=== PATIENT | female | born 1985 | race American Indian/Alaskan Native ===

== ENCOUNTER 2019-03-01 20:34 | Emergency (ER) | payer SELFPAY ==
[2019-03-01 21:08] LABS: Hematocrit 34.6 % (30.3-42.9); Hemoglobin 11.1 gm/dl (10.1-14.3); Mean Corpuscular HGB Conc 32 % (30-34); Mean Corpuscular Volume 88 fl (79-97); Platelet Count 448 K/mm3 (140-440); Red Blood Count 3.92 M/mm3 (3.65-5.03)
[2019-03-01 21:13] LABS: Bilirubin,Urine Negative (Negative); Color,Urine Yellow (Yellow)
[2019-03-01 21:14] LABS: Blood,Urine Small (Negative); Mucus,Urine Few /HPF; Protein,Urine <15 mg/dL mg/dL (Negative); Urobilinogen,Urine < 2.0 mg/dL (<2.0)
[2019-03-01 21:23] LABS: INR 0.83 (0.87-1.13)
[2019-03-01] MEDS ORDERED: methylPREDNISolone Sod Succinate 125 MG/2 ML INJ IV ONE (21:29)
[2019-03-01] MEDS ORDERED: diphenhydrAMINE 50 MG/ML VIAL IV ONE (21:29)
[2019-03-01] MEDS ORDERED: LIDOCAINE (4%) 40 MG/ML TOPICAL SOLN 50 ML BOTTLE TP ONE (21:29)
[2019-03-01] MEDS ORDERED: METOCLOPRAMIDE 10 MG/2 ML INJ IV ONE (21:29)
[2019-03-01] MEDS ORDERED: MAGNESIUM SULFATE 2 GM/50 ML BAG IV ONE (21:29)
--- NOTE | 2019-03-01 21:30 | Emergency Department Report ---
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 She reports that she is not , and further reports that she has not delivered a given within the past 6 weeks. She also denies DVT and pulmonary embolism risk factors. The patient believes that she may have a history of hypertension, and recently started and antihypertensive medication within the past week or so. The patient further reports that she was seen at [facility] a few days ago for headache. She reports that she went twice. The headache is frontal, bitemporal. The headache is present for one week. The headache is not described as sudden or thunderclap in nature. The headache is not maximal intensity at onset. The headache has been constant for one week. She reports it does not have exacerbating or relieving factors that she is aware. She describes the headache as "somebody pulling on my hair." There is no neck pain or stiffness, no recent MBC, no recent chiropractic manipulation, no sore throat, no fever, no extremity weakness and/or numbness. She denies additional pain. Apparently, she was at work today, and had an episode of convulsion, and one of her coworkers believes that she may have had a seizure. It is uncertain if there was any convulsive activity, but apparently, she may have been foaming at the mouth. She denies recreational drug use. Patient reports not having had her vision checked recently. She does not work glasses or contact lenses. She reports that she gets at least 5 or 6 hours of screen time per day, in front of various lecher devices, including computer, and cell phone. -: Gradual Location: head Severity scale (0 -10): 0 Consistency: other Improves with: other Worsens with: other - Related Data Previous Rx's Medication Instructions Recorded Last Taken Type Ciprofloxacin HCl [Cipro] 500 mg PO Q12H #14 tab 02/06/15 Unknown Rx amLODIPine [Norvasc] 10 mg PO DAILY #30 tab 04/04/14 Unknown Rx Acetaminophen [Non-Aspirin Extra 500 mg PO Q6HR PRN #30 tablet 03/01/19 Unknown Rx Strength] Ibuprofen [Motrin] 600 mg PO Q8H PRN #30 tablet 03/01/19 Unknown Rx Metoclopramide [Reglan] 10 mg PO QID PRN #30 tablet 03/01/19 Unknown Rx Allergies Allergy/AdvReac Type Severity Reaction Status Date / Time No Known Allergies Allergy Verified 04/04/14 11:33 ED Review of Systems ROS: Stated complaint: SEIZURE AND HEADACHES Other details as noted in HPI Constitutional: denies: fever Eyes: denies: eye discharge, vision change ENT: denies: dental pain, congestion Cardiovascular: denies: chest pain, palpitations Gastrointestinal: denies: abdominal pain, nausea, vomiting Genitourinary: denies: dysuria Musculoskeletal: denies: myalgia Neurological: headache. denies: weakness, numbness, paresthesias, confusion Hematological/Lymphatic: denies: easy bleeding ED Past Medical Hx - Past Medical History Previous Medical History?: Yes Hx Hypertension: Yes - Surgical History Past Surgical History?: Yes Additional Surgical History: ECTOPIC - Social History Smoking Status: Never Smoker Substance Use Type: Alcohol - Medications Home Medications: Home Medications Medication Instructions Recorded Confirmed Last Taken Type Ciprofloxacin HCl [Cipro] 500 mg PO Q12H #14 tab 04/04/14 Unknown Rx amLODIPine [Norvasc] 10 mg PO DAILY #30 tab 04/04/14 Unknown Rx Acetaminophen [Non-Aspirin Extra 500 mg PO Q6HR PRN #30 tablet 03/01/19 Unknown Rx Strength] Ibuprofen [Motrin] 600 mg PO Q8H PRN #30 tablet 03/01/19 Unknown Rx Metoclopramide [Reglan] 10 mg PO QID PRN #30 tablet 03/01/19 Unknown Rx ED Physical Exam - General Limitations: No Limitations General appearance: alert, in no apparent distress - Head Head exam: Present: atraumatic, normocephalic - Eye Eye exam: Present: normal appearance, PERRL, EOMI, other (visual acuity intact to finger counting, color perception, reading at a close distance). Absent: nystagmus - ENT ENT exam: Present: normal exam, normal orophraynx, mucous membranes moist, TM's normal bilaterally, normal external ear exam - Neck Neck exam: Present: normal inspection, full ROM. Absent: tenderness, meningismus - Respiratory Respiratory exam: Present: normal lung sounds bilaterally. Absent: respiratory distress - Cardiovascular Cardiovascular Exam: Present: regular rate, normal rhythm, normal heart sounds. Absent: bradycardia, tachycardia, irregular rhythm, systolic murmur, diastolic murmur, rubs, gallop - GI/Abdominal GI/Abdominal exam: Present: soft, normal bowel sounds. Absent: distended, tenderness, guarding, rebound, rigid, pulsatile mass - Extremities Exam Extremities exam: Present: normal inspection, full ROM, other (2+ pulses noted in the bilateral upper and lower extremities. The pelvis is stable. There is no long bony tenderness. The muscular compartments are soft. There is no redness, pus, streaking or erythema.). Absent: pedal edema, joint swelling, calf tenderness - Back Exam Back exam: Present: normal inspection, full ROM. Absent: tenderness, CVA tenderness (R), CVA tenderness (L), paraspinal tenderness, vertebral tenderness - Neurological Exam Neurological exam: Present: alert (there is no pass pointing. There is normal [id number]. There is a normal tandem gait. There is no pronator drift. There is negative Romberg examination), oriented X3, normal gait, other (there is no facial droop. The tongue is midline. Extraocular movements are intact bilaterally. There is 5 out of 5 strength in bilateral upper and lower extremities. Sensation is intact to light touch bilateral upper and lower extremities. There is no past-pointing. There is no pronator drift. There is normal [id number]. There is a normal gait.). Absent: motor sensory deficit - Psychiatric Psychiatric exam: Present: normal affect, normal mood - Skin Skin exam: Present: warm, dry, intact, normal color. Absent: rash ED Course Vital Signs 03/01/19 03/01/19 03/01/19 20:46 21:44 21:46 Temperature 97.9 F Pulse Rate 80 70 Respiratory 18 10 L Rate Blood Pressure Blood Pressure 179/116 [Right] O2 Sat by Pulse 98 97 98 Oximetry 03/01/19 03/01/19 03/01/19 22:02 22:16 22:30 Temperature Pulse Rate 85 67 72 Respiratory 13 14 Rate Blood Pressure 183/109 Blood Pressure [Right] O2 Sat by Pulse 97 99 Oximetry 03/01/19 03/01/19 03/01/19 22:45 23:10 23:15 Temperature Pulse Rate 63 72 Respiratory 20 20 Rate Blood Pressure 173/101 173/101 166/104 Blood Pressure [Right] O2 Sat by Pulse 98 93 98 Oximetry 03/01/19 03/01/19 03/02/19 23:30 23:45 00:00 Temperature Pulse Rate 63 63 64 Respiratory 17 24 21 Rate Blood Pressure 166/104 156/108 156/108 Blood Pressure [Right] O2 Sat by Pulse 99 99 99 Oximetry - Reevaluation(s) Reevaluation #1: 03/01/19 22:29 Differential diagnosis, including but not limited to: Migraine headache, tension headache, cluster headache, seizure, pseudoseizure, intracranial lesion Assessment and plan: 33-year-old female, with headache for one week, possible convulsive event today. She does not have any risk factors for preeclampsia. Does not have any risk factors for venous sinus thrombosis. Headache by history is not consistent with subarachnoid hemorrhage, or spontaneous hemorrhage. The patient is afebrile, with reassuring vital signs, clinically sober, walks with a steady gait. Her physical examination is unremarkable with the exception of elevated blood pressure. A noncontrast CT scan of the brain is ordered. Screening laboratory studies are reviewed and appreciated, and/or unremarkable. Hypokalemia will be addressed. Patient placed on monitoring tech. No further convulsive events noted, no loss of consciousness noted. Reevaluation #2: 03/01/19 23:44 The patient is reassessed. She feels improved. Her repeat neurologic examination is unremarkable and unchanged from prior. Noncontrast CT scan of the brain is negative for acute disease. She is taking lisinopril, 10 mg daily. Blood pressure is improved. Reevaluation #3: 03/02/19 00:42 Blood pressure is improved. Observed for over 4 hours without clinical decompensation. No additional convulsive events noted. We will discharge the patient. Return precautions reviewed. Patient and family amenable to this plan of care. ED Medical Decision Making - Lab Data Result diagrams: 03/01/19 20:54 03/01/19 20:54 Vital Signs 03/01/19 20:46 Temperature 97.9 F Pulse Rate 80 Respiratory 18 Rate Blood Pressure 179/116 [Right] O2 Sat by Pulse 98 Oximetry Lab Results 03/01/19 03/01/19 03/01/19 Range/Units 20:54 20:54 20:54 WBC 13.2 H (4.5-11.0) K/mm3 RBC 3.92 (3.65-5.03) M/mm3 Hgb 11.1 (10.1-14.3) gm/dl Hct 34.6 (30.3-42.9) % MCV 88 (79-97) fl MCH 28 (28-32) pg MCHC 32 (30-34) % RDW 14.0 (13.2-15.2) % Plt Count 448 H (140-440) K/mm3 PT (12.2-14.9) Sec. INR (0.87-1.13) Sodium (137-145) mmol/L Potassium (3.6-5.0) mmol/L Chloride (98-107) mmol/L Carbon Dioxide (22-30) mmol/L Anion Gap mmol/L BUN (7-17) mg/dL Creatinine (0.7-1.2) mg/dL Estimated GFR ml/min BUN/Creatinine Ratio % Glucose (65-100) mg/dL Calcium (8.4-10.2) mg/dL Magnesium (1.7-2.3) mg/dL Total Bilirubin (0.1-1.2) mg/dL AST (5-40) units/L ALT (7-56) units/L Alkaline Phosphatase (35-129) units/L Total Creatine Kinase (30-135) units/L Total Protein (6.3-8.2) g/dL Albumin (3.9-5) g/dL Albumin/Globulin Ratio % TSH (0.270-4.200) mlU/mL HCG, Quant (0-4) mIU/mL Urine Color Yellow (Yellow) Urine Turbidity Clear (Clear) Urine pH 5.0 (5.0-7.0) Ur Specific Dalton 1.020 (1.003-1.030) Urine Protein <15 mg/dl (Negative) mg/dL Urine Glucose (UA) Negative (Negative) mg/dL Urine Ketones Negative (Negative) mg/dL Urine Blood Small A (Negative) Urine Nitrite Negative (Negative) Urine Bilirubin Negative (Negative) Urine Urobilinogen < 2.0 (<2.0) mg/dL Ur Leukocyte Esterase Negative (Negative) Urine WBC (Auto) 1.0 (0.0-6.0) /HPF Urine RBC (Auto) 2.0 (0.0-6.0) /HPF U Epithel Cells (Auto) 1.0 (0-13.0) /HPF Urine Mucus Few /HPF Salicylates (2.8-20.0) mg/dL Urine Opiates Screen Presumptive negative Urine Methadone Screen Presumptive negative Acetaminophen (10.0-30.0) ug/mL Ur Barbiturates Screen Presumptive negative Ur Phencyclidine Scrn Presumptive negative Ur Amphetamines Screen Presumptive negative U Benzodiazepines Scrn Presumptive negative Urine Cocaine Screen Presumptive negative U Marijuana (THC) Screen Presumptive negative Drugs of Abuse Note Disclamer Plasma/Serum Alcohol (0-0.07) % 03/01/19 03/01/19 03/01/19 Range/Units 20:54 20:54 20:54 WBC (4.5-11.0) K/mm3 RBC (3.65-5.03) M/mm3 Hgb (10.1-14.3) gm/dl Hct (30.3-42.9) % MCV (79-97) fl MCH (28-32) pg MCHC (30-34) % RDW (13.2-15.2) % Plt Count (140-440) K/mm3 PT 11.5 L (12.2-14.9) Sec. INR 0.83 L (0.87-1.13) Sodium 139 (137-145) mmol/L Potassium 3.0 L (3.6-5.0) mmol/L Chloride 100.8 (98-107) mmol/L Carbon Dioxide 24 (22-30) mmol/L Anion Gap 17 mmol/L BUN 10 (7-17) mg/dL Creatinine 0.8 (0.7-1.2) mg/dL Estimated GFR > 60 ml/min BUN/Creatinine Ratio 13 % Glucose 108 H (65-100) mg/dL Calcium 8.9 (8.4-10.2) mg/dL Magnesium 1.90 (1.7-2.3) mg/dL Total Bilirubin 0.20 (0.1-1.2) mg/dL AST 11 (5-40) units/L ALT 8 (7-56) units/L Alkaline Phosphatase 58 (35-129) units/L Total Creatine Kinase 128 (30-135) units/L Total Protein 7.3 (6.3-8.2) g/dL Albumin 4.0 (3.9-5) g/dL Albumin/Globulin Ratio 1.2 % TSH 0.821 (0.270-4.200) mlU/mL HCG, Quant (0-4) mIU/mL Urine Color (Yellow) Urine Turbidity (Clear) Urine pH (5.0-7.0) Ur Specific Dalton (1.003-1.030) Urine Protein (Negative) mg/dL Urine Glucose (UA) (Negative) mg/dL Urine Ketones (Negative) mg/dL Urine Blood (Negative) Urine Nitrite (Negative) Urine Bilirubin (Negative) Urine Urobilinogen (<2.0) mg/dL Ur Leukocyte Esterase (Negative) Urine WBC (Auto) (0.0-6.0) /HPF Urine RBC (Auto) (0.0-6.0) /HPF U Epithel Cells (Auto) (0-13.0) /HPF Urine Mucus /HPF Salicylates (2.8-20.0) mg/dL Urine Opiates Screen Urine Methadone Screen Acetaminophen (10.0-30.0) ug/mL Ur Barbiturates Screen Ur Phencyclidine Scrn Ur Amphetamines Screen U Benzodiazepines Scrn Urine Cocaine Screen U Marijuana (THC) Screen Drugs of Abuse Note Plasma/Serum Alcohol (0-0.07) % 03/01/19 03/01/19 03/01/19 Range/Units 20:54 20:54 20:54 WBC (4.5-11.0) K/mm3 RBC (3.65-5.03) M/mm3 Hgb (10.1-14.3) gm/dl Hct (30.3-42.9) % MCV (79-97) fl MCH (28-32) pg MCHC (30-34) % RDW (13.2-15.2) % Plt Count (140-440) K/mm3 PT (12.2-14.9) Sec. INR (0.87-1.13) Sodium (137-145) mmol/L Potassium (3.6-5.0) mmol/L Chloride (98-107) mmol/L Carbon Dioxide (22-30) mmol/L Anion Gap mmol/L BUN (7-17) mg/dL Creatinine (0.7-1.2) mg/dL Estimated GFR ml/min BUN/Creatinine Ratio % Glucose (65-100) mg/dL Calcium (8.4-10.2) mg/dL Magnesium (1.7-2.3) mg/dL Total Bilirubin (0.1-1.2) mg/dL AST (5-40) units/L ALT (7-56) units/L Alkaline Phosphatase (35-129) units/L Total Creatine Kinase (30-135) units/L Total Protein (6.3-8.2) g/dL Albumin (3.9-5) g/dL Albumin/Globulin Ratio % TSH (0.270-4.200) mlU/mL HCG, Quant 0.5 (0-4) mIU/mL Urine Color (Yellow) Urine Turbidity (Clear) Urine pH (5.0-7.0) Ur Specific Dalton (1.003-1.030) Urine Protein (Negative) mg/dL Urine Glucose (UA) (Negative) mg/dL Urine Ketones (Negative) mg/dL Urine Blood (Negative) Urine Nitrite (Negative) Urine Bilirubin (Negative) Urine Urobilinogen (<2.0) mg/dL Ur Leukocyte Esterase (Negative) Urine WBC (Auto) (0.0-6.0) /HPF Urine RBC (Auto) (0.0-6.0) /HPF U Epithel Cells (Auto) (0-13.0) /HPF Urine Mucus /HPF Salicylates < 0.3 L (2.8-20.0) mg/dL Urine Opiates Screen Urine Methadone Screen Acetaminophen 10.8 (10.0-30.0) ug/mL Ur Barbiturates Screen Ur Phencyclidine Scrn Ur Amphetamines Screen U Benzodiazepines Scrn Urine Cocaine Screen U Marijuana (THC) Screen Drugs of Abuse Note Plasma/Serum Alcohol (0-0.07) % 03/01/19 Range/Units 20:54 WBC (4.5-11.0) K/mm3 RBC (3.65-5.03) M/mm3 Hgb (10.1-14.3) gm/dl Hct (30.3-42.9) % MCV (79-97) fl MCH (28-32) pg MCHC (30-34) % RDW (13.2-15.2) % Plt Count (140-440) K/mm3 PT (12.2-14.9) Sec. INR (0.87-1.13) Sodium (137-145) mmol/L Potassium (3.6-5.0) mmol/L Chloride (98-107) mmol/L Carbon Dioxide (22-30) mmol/L Anion Gap mmol/L BUN (7-17) mg/dL Creatinine (0.7-1.2) mg/dL Estimated GFR ml/min BUN/Creatinine Ratio % Glucose (65-100) mg/dL Calcium (8.4-10.2) mg/dL Magnesium (1.7-2.3) mg/dL Total Bilirubin (0.1-1.2) mg/dL AST (5-40) units/L ALT (7-56) units/L Alkaline Phosphatase (35-129) units/L Total Creatine Kinase (30-135) units/L Total Protein (6.3-8.2) g/dL Albumin (3.9-5) g/dL Albumin/Globulin Ratio % TSH (0.270-4.200) mlU/mL HCG, Quant (0-4) mIU/mL Urine Color (Yellow) Urine Turbidity (Clear) Urine pH (5.0-7.0) Ur Specific Dalton (1.003-1.030) Urine Protein (Negative) mg/dL Urine Glucose (UA) (Negative) mg/dL Urine Ketones (Negative) mg/dL Urine Blood (Negative) Urine Nitrite (Negative) Urine Bilirubin (Negative) Urine Urobilinogen (<2.0) mg/dL Ur Leukocyte Esterase (Negative) Urine WBC (Auto) (0.0-6.0) /HPF Urine RBC (Auto) (0.0-6.0) /HPF U Epithel Cells (Auto) (0-13.0) /HPF Urine Mucus /HPF Salicylates (2.8-20.0) mg/dL Urine Opiates Screen Urine Methadone Screen Acetaminophen (10.0-30.0) ug/mL Ur Barbiturates Screen Ur Phencyclidine Scrn Ur Amphetamines Screen U Benzodiazepines Scrn Urine Cocaine Screen U Marijuana (THC) Screen Drugs of Abuse Note Plasma/Serum Alcohol < 0.01 (0-0.07) % - EKG Data -: EKG Interpreted by Me - EKG Data 03/01/19 22:29 There is no prior EKG available for comparison. The EKG shows a sinus rhythm, normal axis, QTC within normal limits, motion artifact, no endorsement of chest pain, Q waves in the inferior leads, the EKG is abnormal, there is no prior for comparison, the EKG is not consistent with ST elevation myocardial infarction. - Radiology Data Radiology results: pending, report reviewed Critical care attestation.: If time is entered above; I have spent that time in minutes in the direct care of this critically ill patient, excluding procedure time. ED Disposition Clinical Impression: History of headache, History of convulsions Disposition: TO HOME OR SELFCARE Is pt being admited?: No Does the pt Need Aspirin: No Condition: Stable Additional Instructions: Do not drive or operate motor vehicles for the next 6 months, or until cleared to do so by a primary care doctor or neurology doctor. Recommend patient follow-up with the primary care doctor or neurologist within the next 5-7 days. Take the headache medicine as needed and/or directed. Avoid consumption of alcohol. Please minimize computer screen time to work-related tasks and only essential tasks. Recommend follow-up with an outpatient auction block clerk or receptionist doctor's office within the next 2 weeks, for formal vision testing, to assess for need for corrective lenses. Return to the emergency room right away with projectile vomiting, change in mental status, confusion, inability to tolerate liquid feeds, new, worsening or different symptoms not present on the initial emergency room evaluation. Prescriptions: Ibuprofen [Motrin] 600 mg PO Q8H PRN #30 tablet PRN Reason: Pain Acetaminophen [Non-Aspirin Extra Strength] 500 mg PO Q6HR PRN #30 tablet PRN Reason: Pain , Severe (7-10) Metoclopramide [Reglan] 10 mg PO QID PRN #30 tablet PRN Reason: Headache Referrals: YAEL LARIOS MD [Referring] - 3-5 Days JEANETTE JACKSON MD [Staff Physician] - 3-5 Days SASHA ZAVALA MD [Staff Physician] - 3-5 Days [facility] [Provider Group] - 3-5 Days
[2019-03-01 21:38] LABS: Alanine Aminotransferase 8 units/L (7-56); BUN/Creatinine Ratio 13; Blood Urea Nitrogen 10 mg/dL (7-17); Calcium 8.9 mg/dL (8.4-10.2)
[2019-03-01 21:41] LABS: Amphetamine Screen,Urine PRESUMPTIVE NEGATIVE; Benzodiazepines Screen,Urine PRESUMPTIVE NEGATIVE; Cannabinoid Screen,Urine PRESUMPTIVE NEGATIVE; Cocaine Screen,Urine PRESUMPTIVE NEGATIVE; Methadone Screen,Urine PRESUMPTIVE NEGATIVE; Opiate Screen,Urine PRESUMPTIVE NEGATIVE
[2019-03-01] MEDS ORDERED: SODIUM CHLORIDE 0.9% 500 ML 500 ML IV ONE (22:20)
[2019-03-01] MEDS ORDERED: POTASSIUM CHLORIDE ER 20 MEQ TAB PO ONE (22:20)
[2019-03-01] MEDS: POTASSIUM CHLORIDE 10 MEQ 10 MEQ/100 ML BAG IV SCH (23:16)
--- NOTE | 2019-03-01 23:34 | Cat Scan Report ---
CT HEAD WITHOUT CONTRAST INDICATION / CLINICAL INFORMATION: convulsion, headache`. TECHNIQUE: All CT scans at this location are performed using CT dose reduction for ALARA by means of automated e xposure control. COMPARISON: None available. FINDINGS: HEMORRHAGE: None. EXTRA-AXIAL SPACES: Normal in size and morphology for the patient's age. VENTRICULAR SYSTEM: Normal in size and morphology for the patient's age. CEREBRAL PARENCHYMA: No significant abnormality. No acute territorial infarct. MIDLINE SHIFT OR HERNIATION: None. CEREBELLUM / BRAINSTEM: No significant abnormality. ORBITS: Normal as visualized. SOFT TISSUES of HEAD: No significant abnormality. CALVARIUM: No significant abnormality. PARANASAL SINUSES / MASTOID AIR CELLS: Normal as visualized. ADDITIONAL FINDINGS: None. IMPRESSION: 1. No acute intracranial abnormality. Signer Name: Dwayne Flower MD Signed: 03/01/2019 11:30 PM Workstation Name: [id number]
[2019-03-02 00:08] VITALS: BP 156/108
[2019-03-02] MEDS: POTASSIUM CHLORIDE 10 MEQ 10 MEQ/100 ML BAG IV SCH (00:27)
[2019-03-02 05:21] LABS: Hemolysis Index 1
== END 2019-03-02 02:19 | disposition home or self-care (01) ==
LOC: ED 20:34
DX: R51 Headache (principal); R56.9 Unspecified convulsions; I10 Essential (primary) hypertension; F10.10 Alcohol abuse, uncomplicated; Z98.890 Other specified postprocedural states; Z79.899 Other long term (current) drug therapy
CPT/HCPCS: 36415; 70450; 80053; 80307; 81001; 82550; 83735; 84443; 84702; 85027; 85610; 93005; 93010; 96365; 96375; 99285; J1200; J2765; J2930; J3475; J3480; J7040; 80320; G0480

== ENCOUNTER 2019-03-06 18:24 | Emergency (ER) | payer SELFPAY ==
--- NOTE | 2019-03-06 21:56 | Event Note ---
ED Screening Note Date of service: 03/06/19 ED Screening Note: This initial assessment/diagnostic orders/clinical plan/treatment(s) is/are subject to change based on patients health status, clinical progression and re- assessment by fellow clinical providers in the ED. Further treatment and workup at subsequent clinical providers discretion. Patient/guardian urged not to elope from the ED as their condition may be serious if not clinically assessed and managed. Initial orders include:
--- NOTE | 2019-03-06 22:02 | Event Note ---
ED Screening Note Date of service: 03/06/19 Time: 21:58 ED Screening Note: Patient reports a epileptic event today while at work. Patient reports first seizure 03/01/18 and seen in this ER. Referral to neurology and PCP with no follow up. PMH of HTN Patient reports similar symptoms Monday and Monday. She was seen at [place] and sent home with pain medication. This initial assessment/diagnostic orders/clinical plan/treatment(s) is/are subject to change based on patients health status, clinical progression and re- assessment by fellow clinical providers in the ED. Further treatment and workup at subsequent clinical providers discretion. Patient/guardian urged not to elope from the ED as their condition may be serious if not clinically assessed and managed. Initial orders include: Labs
[2019-03-06 22:56] LABS: Basophils # (Auto) 0.2 K/mm3 (0.0-0.1); Basophils % (Auto) 1.1 % (0.0-1.8); Eosinophils # (Auto) 0.2 K/mm3 (0.0-0.4); Eosinophils % (Auto) 1.2 % (0.0-4.3); Hematocrit 35.4 % (30.3-42.9); Hemoglobin 11.7 gm/dl (10.1-14.3); Lymphocytes # (Auto) 3.3 K/mm3 (1.2-5.4); Lymphocytes % (Auto) 22.7 % (13.4-35.0); Mean Corpuscular HGB Conc 33 % (30-34); Mean Corpuscular Volume 87 fl (79-97); Monocytes # (Auto) 0.6 K/mm3 (0.0-0.8); Monocytes % (Auto) 4.2 % (0.0-7.3); Platelet Count 543 K/mm3 (140-440); Red Blood Count 4.07 M/mm3 (3.65-5.03); Red Cell Distribution Width 14.4 % (13.2-15.2)
[2019-03-06 23:05] LABS: INR 0.9 (0.87-1.13)
[2019-03-06 23:20] LABS: Alanine Aminotransferase 11 units/L (7-56); Albumin 4.2 g/dL (3.9-5); BUN/Creatinine Ratio 9; Blood Urea Nitrogen 6 mg/dL (7-17); Calcium 9.3 mg/dL (8.4-10.2); Hemolysis Index 3
[2019-03-07] MEDS ORDERED: cloNIDine 0.1 MG TAB PO ONE (02:27)
[2019-03-07] MEDS ORDERED: cloNIDine 0.2 MG TAB ONE (02:28)
--- NOTE | 2019-03-07 02:30 | Emergency Department Report ---
ED Headache HPI - General Chief Complaint: Headache Stated Complaint: WEAK/HEADACHE/BLUR VISION Time Seen by Provider: 03/06/19 21:55 - History of Present Illness Initial Comments: Patient is a 34-year-old female, nontoxic with no significant past medical history except for hypertension, noncompliant with her medication. Patient presented to the ER complaining of headache and blurry vision for 2 weeks, on and off. Patient stated that she was seen here 5 days ago had a negative CT scan of the brain. Patient currently denying any fever, chills, neck pain or stiffness, weakness numbness or tingling sensation. Patient found to have a blood pressure of 183/101. Allergies/Adverse Reactions: Allergies No Known Allergies Allergy (Verified 03/06/19 21:55) Home Medications: Ambulatory Orders Ciprofloxacin HCl [Cipro] 500 mg PO Q12H #14 tab 04/04/14 amLODIPine [Norvasc] 10 mg PO DAILY #30 tab 04/04/14 Acetaminophen [Non-Aspirin Extra Strength] 500 mg PO Q6HR PRN #30 tablet 03/01/19 Ibuprofen [Motrin] 600 mg PO Q8H PRN #30 tablet 03/01/19 Metoclopramide [Reglan] 10 mg PO QID PRN #30 tablet 03/01/19 ED Review of Systems ROS: Stated complaint: WEAK/HEADACHE/BLUR VISION Other details as noted in HPI Comment: All other systems reviewed and negative Constitutional: denies: chills, fever Respiratory: denies: cough, shortness of breath, SOB with exertion Cardiovascular: denies: chest pain, palpitations Gastrointestinal: denies: abdominal pain, nausea Musculoskeletal: denies: back pain Neurological: headache. denies: weakness, numbness, paresthesias, confusion, abnormal gait ED Past Medical Hx - Past Medical History Previous Medical History?: Yes Hx Hypertension: Yes - Surgical History Past Surgical History?: Yes Additional Surgical History: ECTOPIC - Social History Smoking Status: Never Smoker Substance Use Type: Alcohol - Medications Home Medications: Home Medications Medication Instructions Recorded Confirmed Last Taken Type Ciprofloxacin HCl [Cipro] 500 mg PO Q12H #14 tab 04/04/14 Unknown Rx amLODIPine [Norvasc] 10 mg PO DAILY #30 tab 04/04/14 Unknown Rx Acetaminophen [Non-Aspirin Extra 500 mg PO Q6HR PRN #30 tablet 03/01/19 Unknown Rx Strength] Ibuprofen [Motrin] 600 mg PO Q8H PRN #30 tablet 03/01/19 Unknown Rx Metoclopramide [Reglan] 10 mg PO QID PRN #30 tablet 03/01/19 Unknown Rx ED Physical Exam - General Limitations: No Limitations General appearance: alert, in no apparent distress - Head Head exam: Present: atraumatic, normocephalic, normal inspection - Eye Eye exam: Present: normal appearance - ENT ENT exam: Present: normal exam, normal orophraynx, mucous membranes moist - Neck Neck exam: Present: normal inspection, full ROM. Absent: tenderness, meningism us, lymphadenopathy, thyromegaly - Respiratory Respiratory exam: Present: normal lung sounds bilaterally - Cardiovascular Cardiovascular Exam: Present: regular rate, normal rhythm, normal heart sounds - GI/Abdominal GI/Abdominal exam: Present: soft, normal bowel sounds. Absent: distended, tenderness, guarding, rebound, rigid, organomegaly, mass, bruit, pulsatile mass, hernia - Extremities Exam Extremities exam: Present: normal inspection, full ROM, normal capillary refill. Absent: tenderness, pedal edema, calf tenderness - Back Exam Back exam: Present: normal inspection, full ROM. Absent: CVA tenderness (R), CVA tenderness (L), muscle spasm, paraspinal tenderness, vertebral tenderness - Neurological Exam Neurological exam: Present: alert, oriented X3, CN II-XII intact, normal gait, reflexes normal - Psychiatric Psychiatric exam: Present: normal mood - Skin Skin exam: Present: warm, intact, normal color ED Course Vital Signs 03/06/19 03/07/19 03/07/19 19:23 02:50 04:41 Temperature 98.3 F 98.3 F Pulse Rate 83 83 83 Respiratory 20 20 Rate Blood Pressure 183/101 205/103 Blood Pressure 155/97 [Left] O2 Sat by Pulse 99 99 Oximetry ED Medical Decision Making - Lab Data Result diagrams: 03/06/19 22:18 03/06/19 22:18 - Radiology Data Radiology results: report reviewed - Medical Decision Making Patient is a 34-year-old female, nontoxic with no significant past medical history except for hypertension, noncompliant with her medication. Patient presented to the ER complaining of headache and blurry vision for 2 weeks, on and off. Patient stated that she was seen here 5 days ago had a negative CT scan of the brain. Patient currently denying any fever, chills, neck pain or stiffness, weakness numbness or tingling sensation. Patient found to have a blood pressure of 183/101 Patient received clonidine 0.2 mg with significant improvement in her blood pressure. Patient stated that her symptoms completely resolved now. Patient given prescription for Norvasc 5 mg and hydrochlorothiazide 25 mg and advised to follow up with her primary care physician in the next 2-3 days and to return to the ER if symptoms are not improved. Critical care attestation.: If time is entered above; I have spent that time in minutes in the direct care of this critically ill patient, excluding procedure time. ED Disposition Clinical Impression: Malignant hypertension, Headache Disposition: DC- TO HOME OR SELFCARE Is pt being admited?: No Condition: Stable Instructions: Hypertension (ED), Acute Headache (ED) Referrals: PRIMARY CARE, [Primary Care Provider] - 3-5 Days
[2019-03-07 04:42] VITALS: BP 155/97
== END 2019-03-07 05:16 | disposition home or self-care (01) ==
LOC: ED 18:24
DX: I10 Essential (primary) hypertension (principal); R51 Headache
CPT/HCPCS: 36415; 80053; 85025; 85610; 85730; 99283

== ENCOUNTER 2019-03-11 10:57 | Emergency (ER) | payer OTHER ==
--- NOTE | 2019-03-11 12:54 | Emergency Department Report ---
Blank Doc - Documentation Documentation: 34-year-old female that presents with URI symptoms. This initial assessment/diagnostic orders/clinical plan/treatment(s) is/are subject to change based on patient's health status, clinical progression and re- assessment by fellow clinical providers in the ED. Further treatment and workup at subsequent clinical providers discretion. Patient/guardians urged not to elope from the ED as their condition may be serious if not clinically assessed and managed. Initial orders include: 1- Patient sent to [facility] for further evaluation and treatment 2- CXR
--- NOTE | 2019-03-11 13:23 | XRay Report ---
CHEST 2 VIEWS INDICATION / CLINICAL INFORMATION: cough. COMPARISON: None available. FINDINGS: SUPPORT DEVICES: None. HEART / MEDIASTINUM: No significant abnormality. LUNGS / PLEURA: No significant pulmonary or pleural abnormality. No pneumothorax. ADDITIONAL FINDINGS: No significant additional findings. IMPRESSION: 1. No acute findings. Signer Name: Justin Stevenson MD Signed: 03/11/2019 1:19 PM Workstation Name: [id number]
--- NOTE | 2019-03-11 18:51 | Emergency Department Report ---
Minor Respiratory - HPI Chief Complaint: Upper Respiratory Infection Stated Complaint: FLU SYM Time Seen by Provider: 03/11/19 12:53 Duration: 4 Days Pain Location: Nose Severity: moderate Minor Respiratory: Yes Rhinorrhea, Yes Able to Tolerate Fluids, Yes Cough, Yes Sick Contacts (spouse), Yes Fever, No Sore Throat, No Ear Pain, No Hemoptysis, No Chest Pain (chest discomfort with cough), No Shortness of Breath Other History: This is a 34-year-old -[place] female who presents to the emergency room with chest discomfort with cough, myalgia, and headache for 4 days. Past medical history of hypertension. Patient reports cough is worse at night. She is taking Robitussin and Tylenol with minimal improvement of symptoms. Patient reports cough is nonproductive. She denies palpitations, shortness of breath, wheezing, nausea, vomiting, or diarrhea. ED Review of Systems ROS: Stated complaint: FLU SYM Other details as noted in HPI Constitutional: chills, fever ENT: congestion. denies: ear pain, throat pain Respiratory: cough. denies: shortness of breath, wheezing Cardiovascular: denies: chest pain (chest discomfort with cough), palpitations Gastrointestinal: denies: abdominal pain, nausea, diarrhea Musculoskeletal: myalgia. denies: back pain, joint swelling, arthralgia Skin: denies: rash, lesions Neurological: headache. denies: weakness, paresthesias Psychiatric: denies: anxiety, depression ED Past Medical Hx - Past Medical History Previous Medical History?: Yes Hx Hypertension: Yes - Surgical History Past Surgical History?: Yes Additional Surgical History: ECTOPIC - Social History Smoking Status: Never Smoker Substance Use Type: None - Medications Home Medications: Home Medications Medication Instructions Recorded Confirmed Last Taken Type Ciprofloxacin HCl [Cipro] 500 mg PO Q12H #14 tab 04/04/14 Unknown Rx amLODIPine [Norvasc] 10 mg PO DAILY #30 tab 04/04/14 Unknown Rx Acetaminophen [Non-Aspirin Extra 500 mg PO Q6HR PRN #30 tablet 03/01/19 Unknown Rx Strength] Ibuprofen [Motrin] 600 mg PO Q8H PRN #30 tablet 03/01/19 Unknown Rx Metoclopramide [Reglan] 10 mg PO QID PRN #30 tablet 03/01/19 Unknown Rx amLODIPine [Norvasc] 5 mg PO DAILY #30 tab 03/07/19 Unknown Rx hydroCHLOROthiazide [HCTZ] 25 mg PO QDAY #30 tablet 03/07/19 Unknown Rx Albuterol INH(or & Nicu Only) 2 puff IH QID PRN #8.5 gram 03/11/19 Unknown Rx [ProAir HFA Inhaler] Azithromycin [Zithromax] 250 mg PO DAILY #6 tablet 03/11/19 Unknown Rx Benzonatate [Tessalon Perles] 100 mg PO Q8HR PRN #30 capsule 03/11/19 Unknown Rx Minor Respiratory Exam - Exam General: Vital signs noted. No distress. Alert and acting appropriately. HEENT: Yes Pharyngeal Erythema (erythematous posterior pharynx, uvula midline), Yes Moist Mucous Membranes, Yes Rhinorrhea (turbinates congested with clear discharge), No Pharyngeal Exudates, No Conjuctival Injection, No Frontal [place] derness, No Maxillary Tenderness Ear: Neither TM Bulge, Neither TM Erythema, Neither EAC Pain, Neither EAC Discharge Neck: Yes Supple, No Adenopathy Lungs: Yes Good Air Exchange, No Wheezes, No Ronchi, No Stridor, No Cough, No Labored Respirations, No Retractions, No Use of Accessory Muscles, No Other Abnormal Lung Sounds Heart: Yes Regular, No Murmur Abdomen: Yes Normal Bowel Sounds, No Tenderness, No Peritoneal Signs Skin: No Rash, No Edema Neurologic: Alert and oriented, no deficits. Musculoskeletal: Unremarkable. ED Course Vital Signs 03/11/19 12:53 Temperature 99.8 F H Pulse Rate 114 H Respiratory 18 Rate Blood Pressure 165/93 O2 Sat by Pulse 94 Oximetry Vital Signs 03/11/19 03/11/19 12:53 18:58 Temperature 99.8 F H Pulse Rate 114 H 100 H Respiratory 18 16 Rate Blood Pressure 165/93 O2 Sat by Pulse 94 99 Oximetry ED Medical Decision Making - Radiology Data Radiology results: report reviewed CHEST 2 VIEWS INDICATION / CLINICAL INFORMATION: cough. COMPARISON: None available. FINDINGS: SUPPORT DEVICES: None. HEART / MEDIASTINUM: No significant abnormality. LUNGS / PLEURA: No significant pulmonary or pleural abnormality. No pneumothorax. ADDITIONAL FINDINGS: No significant additional findings. IMPRESSION: 1. No acute findings. - Medical Decision Making This is a 34-year-old -[place] female who presents to the emergency room with fever, cough, chest discomfort with cough, and headache for 4 days. Patient in no acute distress. Chest x-ray obtained in dictated by radiologist with no acute cardiopulmonary findings. Low suspicion for [employer] infection bacterial sinusitis, or pneumonia given exam and history. Centor negative and with no pharyngeal exudate. No respiratory distress, otherwise relatively well appearing and nontoxic. Family with similar symptoms. Patient will be treated for bronchitis. Start azithromycin, Tessalon Perles, and albuterol inhaler. Follow up with PMD and strict return precautions. Critical care attestation.: If time is entered above; I have spent that time in minutes in the direct care of this critically ill patient, excluding procedure time. ED Disposition Clinical Impression: Cough in adult, Fever and chills, Bronchitis Disposition: TO HOME OR SELFCARE Is pt being admited?: No Condition: Stable Instructions: Acute Bronchitis (ED) Additional Instructions: Increase fluid intake and rest. Wash hands frequently. Continue taking Tylenol or ibuprofen to control fever. F/U with Primary Care Provider. Return to ER if fever, shortness of breath, or difficulty breathing after 48 hours of supportive care. Prescriptions: Albuterol INH(or & Nicu Only) [ProAir HFA Inhaler] 2 puff IH QID PRN #8.5 gram PRN Reason: Shortness Of Breath Benzonatate [Tessalon Perles] 100 mg PO Q8HR PRN #30 capsule PRN Reason: Cough Azithromycin [Zithromax] 250 mg PO DAILY #6 tablet Referrals: KI PIEDRA MD [Staff Physician] - 3-5 Days [facility] [Provider Group] - 3-5 Days [facility] [Provider Group] - 3-5 Days Forms: Work/School Release Form(ED) Time of Disposition: 18:57
[2019-03-11 19:17] VITALS: BP 163/91
== END 2019-03-11 19:15 | disposition home or self-care (01) ==
LOC: ED 10:57
DX: J40 Bronchitis, not specified as acute or chronic (principal); I10 Essential (primary) hypertension; Z79.899 Other long term (current) drug therapy
CPT/HCPCS: 71046

== ENCOUNTER 2019-03-15 16:32 | Emergency (ER) | payer OTHER ==
[2019-03-15 16:59] VITALS: BP 157/102
--- NOTE | 2019-03-15 19:11 | Emergency Department Report ---
Chief Complaint: Medical Clearance Stated Complaint: BRONCHITIS Time Seen by Provider: 03/15/19 19:05 - HPI History of Present Illness: This is a 34-year-old -[place] female who presents to the emergency room with the cough for several days. Patient states she was diagnosed with bronchitis on Monday taking medication as prescribed. Patient states she feels better when she return to work today descent her home requesting a return note. She denies symptoms. She denies chest pain, shortness of breath, palpitations, wheezing, fever, or chills. - ROS Review of Systems: Respiratory: Cough - Exam Vital Signs: Vital Signs 03/15/19 16:57 Temperature 97.9 F Pulse Rate 92 H Respiratory 18 Rate Blood Pressure 157/102 O2 Sat by Pulse 98 Oximetry MSE screening note: Focused history and physical exam performed. Due to findings the following was ordered: ED Medical Decision Making - Medical Decision Making 34 y.o. female that presents with URI symptoms. Patient examined by me and stable. No distress noted. Vitals normal. She denies any symptoms. Continue current medication. At this time no labs or radiographic are indicated. This is a nonemergent complaint. Discharged home stable. Encouraged to do supportive care for URI. Follow up with Primary Care Provider in 2-3 days. Return to work in 3 days. ED Disposition for MSE Disposition: MED SCREENING EXAM-LEFT Is pt being admited?: No Condition: Stable Referrals: [facility] [Provider Group] - 3-5 Days [facility] [Provider Group] - 3-5 Days [facility] [Outside] - 3-5 Days Forms: Work/School Release Form(ED) Time of Disposition: 19:10
== END 2019-03-15 19:57 | disposition left against medical advice (07) ==
LOC: ED 16:32
DX: R05 Cough (principal); J20.9 Acute bronchitis, unspecified
CPT/HCPCS: 99282